=== PATIENT | female | born 1955 | race Caucasian/White ===

== ENCOUNTER 2017-10-09 16:43 | Emergency (ER) | payer SELFPAY ==
[2017-10-09] MEDS ORDERED: RINGERS SOLUTION,LACTATED 1,000 ML IV ONE (17:29)
--- NOTE | 2017-10-09 17:30 | ER Document Report ---
ED Medical Screen (RME) - General Chief Complaint: Nausea/Vomiting Stated Complaint: VOMITING Time Seen by Provider: 10/09/17 17:29 Mode of Arrival: Ambulatory Information source: Patient Notes: 61-year-old female presents to the emergency room with nausea, vomiting for several days. TRAVEL OUTSIDE OF THE [place] IN LAST 30 DAYS: No - Related Data Allergies/Adverse Reactions: No Known Allergies Allergy (Verified 10/09/17 17:09) Past Medical History - Social History Chew tobacco use (# tins/day): No Frequency of alcohol use: None Drug Abuse: None - Past Medical History Cardiac Medical History: Reports: Hx Hypertension Denies: Hx Heart Attack Pulmonary Medical History: Denies: Hx Asthma Neurological Medical History: Denies: Hx Cerebrovascular Accident, Hx Seizures Renal/ Medical History: Denies: Hx Peritoneal Dialysis GI Medical History: Denies: Hx Hepatitis, Hx Hiatal Hernia, Hx Ulcer Infectious Medical History: Denies: Hx Hepatitis Past Surgical History: Denies: Hx Mastectomy, Hx Open Heart Surgery, Hx Pacemaker Physical Exam - Vital signs Vitals: Temp Pulse Resp BP Pulse Ox 98.1 F 89 18 132/94 H 97 10/09/17 16:55 10/09/17 16:55 10/09/17 16:55 10/09/17 16:55 10/09/17 16:55 Course - Vital Signs Vital signs: Temp Pulse Resp BP Pulse Ox 98.1 F 89 18 132/94 H 97 10/09/17 16:55 10/09/17 16:55 10/09/17 16:55 10/09/17 16:55 10/09/17 16:55
[2017-10-09 18:13] LABS: APPEARANCE,URINE CLEAR; BILIRUBIN,URINE NEGATIVE (NEGATIVE); COLOR,URINE YELLOW; GLUCOSE, URINE NEGATIVE (NEGATIVE); KETONES,URINE NEGATIVE (NEGATIVE); LEUKOCYTE ESTERASE,URINE NEGATIVE (NEGATIVE); NITRITE,URINE NEGATIVE (NEGATIVE); PROTEIN,URINE 100 mg/dL (NEGATIVE); URINE SPECIFIC GRAVITY 1.024; UROBILINOGEN,URINE NEGATIVE mg/dL (<2.0)
[2017-10-09 18:25] LABS: ALANINE AMINOTRANSFERASE 36 U/L (9-52); ALBUMIN 4.8 g/dL (3.5-5.0); ALKALINE PHOSPHATASE 112 U/L (38-126); ANION GAP 17 (5-19); ASPARTATE AMINO TRANSFERASE 26 U/L (14-36); BILIRUBIN,DIRECT 0.3 mg/dL (0.0-0.4); BILIRUBIN,TOTAL 0.7 mg/dL (0.2-1.3); BLOOD UREA NITROGEN 39 mg/dL (7-20); CALCIUM 9.9 mg/dL (8.4-10.2); CARBON DIOXIDE 29 mmol/L (22-30); CHLORIDE 92 mmol/L (98-107); GLUCOSE 117 mg/dL (75-110); LIPASE 71.9 U/L (23-300); POTASSIUM 3.3 mmol/L (3.6-5.0); SODIUM 137.7 mmol/L (137-145); TOTAL PROTEIN 8.3 g/dL (6.3-8.2)
[2017-10-09] MEDS ORDERED: NORMAL SALINE 1000 ML 1,000 ML IV ONE (18:26)
--- NOTE | 2017-10-09 18:26 | ER Document Report ---
ED General - General Chief Complaint: Nausea/Vomiting Stated Complaint: VOMITING Time Seen by Provider: 10/09/17 17:29 Mode of Arrival: Ambulatory Information source: Patient Notes: 61-year-old female presents with complaints of nausea vomiting diarrhea over the past 4 days. pt notes it started after eating yogurt. notes diarrhea was the first 2 cisse, the nausea and vomiting since. Patient denies any significant abdominal pain denies any fevers or chills TRAVEL OUTSIDE OF THE [place] IN LAST 30 DAYS: No - HPI Onset: Last week Onset/Duration: Persistent Quality of pain: Cramping Severity: Mild Pain Level: 1 Associated symptoms: Diarrhea, Nausea, Vomiting Exacerbated by: Food Relieved by: Denies Similar symptoms previously: No Recently seen / treated by doctor: No - Related Data Allergies/Adverse Reactions: No Known Allergies Allergy (Verified 10/09/17 17:09) Past Medical History - General Information source: Patient - Social History Smoking Status: Current Every Day Smoker Cigarette use (# per day): Yes Chew tobacco use (# tins/day): No Smoking Education Provided: No Frequency of alcohol use: None Drug Abuse: None Family History: Reviewed & Not Pertinent Patient has suicidal ideation: No Patient has homicidal ideation: No - Past Medical History Cardiac Medical History: Reports: Hx Hypertension Denies: Hx Heart Attack Pulmonary Medical History: Denies: Hx Asthma Neurological Medical History: Denies: Hx Cerebrovascular Accident, Hx Seizures Renal/ Medical History: Denies: Hx Peritoneal Dialysis GI Medical History: Denies: Hx Hepatitis, Hx Hiatal Hernia, Hx Ulcer Infectious Medical History: Denies: Hx Hepatitis Past Surgical History: Denies: Hx Mastectomy, Hx Open Heart Surgery, Hx Pacemaker Review of Systems - Review of Systems Notes: REVIEW OF SYSTEMS: CONSTITUTIONAL : Denies fever, chills, or sweats. Denies recent illness. EENT: Denies eye, ear, throat, or mouth pain or symptoms. Denies nasal or sinus congestion or discharge. Denies throat, tongue, or mouth swelling or difficulty swallowing. CARDIOVASCULAR: Denies chest pain. Denies palpitations or racing or irregular heart beat. Denies ankle edema. RESPIRATORY: Denies cough, cold, or chest congestion. Denies shortness of breath, difficulty breathing, or wheezing. GASTROINTESTINAL: Admits to nausea vomiting diarrhea GENITOURINARY: Denies difficulty urinating, painful urination, burning, frequency, blood in urine, or discharge. FEMALE GENITOURINARY: Denies vaginal bleeding, heavy or abnormal periods, irregular periods. Denies vaginal discharge or odor. MUSCULOSKELETAL: Denies back or neck pain or stiffness. Denies joint pain or swelling. SKIN: Denies rash, lesions or sores. HEMATOLOGIC : Denies easy bruising or bleeding. LYMPHATIC: Denies swollen, enlarged glands. NEUROLOGICAL: Denies confusion or altered mental status. Denies passing out or loss of consciousness. Denies dizziness or lightheadedness. Denies headache. Denies weakness or paralysis or loss of use of either side. Denies problems with gait or speech. Denies sensory loss, numbness, or tingling. Denies seizures. PSYCHIATRIC: Denies anxiety or stress. Denies depression, suicidal ideation, or homicidal ideation. ALL OTHER SYSTEMS REVIEWED AND NEGATIVE. PHYSICAL EXAMINATION: GENERAL: Well-appearing, well-nourished and in no acute distress. HEAD: Atraumatic, normocephalic. EYES: Pupils equal round and reactive to light, extraocular movements intact, conjunctiva are normal. ENT: Nares patent, oropharynx clear without exudates. Moist mucous membranes. NECK: Normal range of motion, supple without lymphadenopathy LUNGS: Breath sounds clear to auscultation bilaterally and equal. No wheezes rales or rhonchi. HEART: Regular rate and rhythm without murmurs ABDOMEN: Soft, nontender, nondistended abdomen. No guarding, no rebound. No masses appreciated. Female : deferred Musculoskeletal: Normal range of motion, no pitting or edema. No cyanosis. NEUROLOGICAL: Cranial nerves grossly intact. Normal speech, normal gait. Normal sensory, motor exams PSYCH: Normal mood, normal affect. SKIN: Warm, Dry, normal turgor, no rashes or lesions noted. Dictation was performed using [employer] voice recognition software Physical Exam - Vital signs Vitals: Temp Pulse Resp BP Pulse Ox 98.1 F 89 18 132/94 H 97 10/09/17 16:55 10/09/17 16:55 10/09/17 16:55 10/09/17 16:55 10/09/17 16:55 Course - Re-evaluation Re-evalutation: 10/09/17 18:57 Patient symptoms have resolved after giving Zofran elevated white count is noted which I believe is secondary to the nausea vomiting 10/09/17 19:28 Patient notes symptoms have improved significantly I will discharge home with nausea control otherwise she looks well is in no distress After performing a Medical Screening Examination, I estimate there is LOW risk for ACUTE APPENDICITIS, BOWEL OBSTRUCTION, ACUTE CHOLECYSTITIS, PERFORATED DIVERTICULITIS, INCARCERATED HERNIA, PANCREATITIS, PELVIC INFLAMMATORY DISEASE, PERFORATED ULCER, ECTOPIC , or TUBO-OVARIAN ABSCESS, thus I consider the discharge disposition reasonable. Also, there is no evidence or peritonitis , sepsis, or toxicity. I have reevaluated this patient multiple times and no significant life threatening changes are noted. The patient and I have discussed the diagnosis and risks, and we agree with discharging home with close follow-up with the understanding that symptoms and presentations can change. We also discussed returning to the Emergency Department immediately if new or worsening symptoms occur. We have discussed the symptoms which are most concerning (e.g., bloody stool, fever, changing or worsening pain, vomiting) that necessitate immediate return. - Vital Signs Vital signs: Temp Pulse Resp BP Pulse Ox 98.5 F 79 18 155/79 H 97 10/09/17 18:29 10/09/17 18:29 10/09/17 18:29 10/09/17 18:29 10/09/17 18:29 - Laboratory Result Diagrams: 10/09/17 17:40 10/09/17 17:40 Laboratory results interpreted by me: 10/09/17 10/09/17 10/09/17 17:40 17:40 17:40 WBC 18.0 H RBC 6.22 H Hgb 18.8 H Hct 55.1 H Seg Neutrophils % 79.9 H Lymphocytes % 11.2 L Absolute Neutrophils 14.4 H Absolute Monocytes 1.5 H Potassium 3.3 L Chloride 92 L BUN 39 H Glucose 117 H Magnesium 2.5 H Total Protein 8.3 H Urine Protein 100 H Urine Blood MODERATE H Discharge - Discharge Clinical Impression: Nausea vomiting and diarrhea Condition: Stable Disposition: HOME, SELF-CARE Instructions: Vomiting ([facility]) Additional Instructions: Follow up with your physician tomorrow for further care or return to the ED IMMEDIATELY if symptoms worsen or new concerns occur. If you cannot afford to follow up with your primary care physician a list of low cost clinics have been provided at the end of your discharge papers as well. Prescriptions: Ondansetron [Zofran Odt 4 mg Tablet] 1 - 2 tab PO Q4H PRN #15 tab.rapdis PRN Reason: For Nausea/Vomiting
[2017-10-09 18:28] LABS: ABSOLUTE BASOPHILS # (AUTO) 0.1 10^3/uL (0.0-0.2); ABSOLUTE MONOCYTES (AUTO) 1.5 10^3/uL (0.1-1.4); ABSOLUTE NEUT (AUTO) 14.4 10^3/uL (1.7-8.2); BASOPHILS % (AUTO) 0.3 % (0-2); EOSINOPHILS % (AUTO) 0.2 % (0-6); HEMATOCRIT 55.1 % (36.0-47.0); HEMOGLOBIN 18.8 g/dL (12.0-15.5); LYMPHOCYTES % (AUTO) 11.2 % (13-45); MEAN CORPUSCULAR HEMOGLOBIN 30.2 pg (27.0-33.4); MEAN CORPUSCULAR HGB CONC 34.1 g/dL (32.0-36.0); MEAN CORPUSCULAR VOLUME 89 fl (80-97); MONOCYTES % (AUTO) 8.4 % (3-13); PLATELET COUNT 310 10^3/uL (150-450); RED BLOOD COUNT 6.22 10^6/uL (3.72-5.28); RED CELL DISTRIBUTION WIDTH 13.6 % (11.5-14.0); SEGMENTED NEUTROPHILS % (AUTO) 79.9 % (42-78); TOTAL CELLS COUNTED % (AUTO) 100 %
[2017-10-09] MEDS ORDERED: ONDANSETRON HCL INJ/PF 4 MG/2 ML SDV IV ONE (18:37)
[2017-10-09 19:46] VITALS: BP 135/75
== END 2017-10-09 19:46 | disposition home or self-care (01) ==
LOC: ER 16:43
DX: R11.2 Nausea with vomiting, unspecified (principal); R19.7 Diarrhea, unspecified; F17.210 Nicotine dependence, cigarettes, uncomplicated; I10 Essential (primary) hypertension
CPT/HCPCS: 99284; 96361; 96374; 36415; 83690; 83735; 85025; 80053; 81001; J2405; J7030; J7120

== ENCOUNTER 2017-10-15 09:25 | Emergency (ER) | payer SELFPAY ==
[2017-10-15] MEDS ORDERED: RINGERS SOLUTION,LACTATED 1,000 ML IV PRN (10:22)
[2017-10-15] MEDS ORDERED: RINGERS SOLUTION,LACTATED 500 ML IV ONE (10:22)
[2017-10-15] MEDS ORDERED: ONDANSETRON HCL INJ/PF 4 MG/2 ML SDV IV ONE (10:29)
--- NOTE | 2017-10-15 10:37 | ER Document Report ---
ED GI/ - General Chief Complaint: Nausea Stated Complaint: LEG PAIN Time Seen by Provider: 10/15/17 09:55 Mode of Arrival: Ambulatory Information source: Patient Notes: Chief complaint- abdominal pain: History of complain:( and then obtained from--patient): 61 years old female presents today with nausea abdominal cramps for the last few days. Had not had any bowel movement for a week. Denies any fever chills denies any other constitutional symptoms. Generally dehydrated and feeling malaise. Denies dysuria frequency urgency. Onset: Gradual Severity: Moderate Quality: Abdominal Context: No bowel movement Exacerbating factor and relieving factors: None REVIEW OF SYSTEMS: CONSTITUTIONAL : Denies fever, chills, or sweats. Denies recent illness. EENT: Denies eye, ear, throat, or mouth pain or symptoms. Denies nasal or sinus congestion or discharge. Denies throat, tongue, or mouth swelling or difficulty swallowing. CARDIOVASCULAR: Denies chest pain. Denies palpitations or racing or irregular heart beat. Denies ankle edema. RESPIRATORY: Denies cough, cold, or chest congestion. Denies shortness of breath, difficulty breathing, or wheezing. GASTROINTESTINAL: Denies abdominal pain or distention. Denies nausea, vomiting , or diarrhea. Denies blood in vomitus, stools, or per rectum. Denies black, tarry stools. Denies constipation. GENITOURINARY: Denies difficulty urinating, painful urination, burning, frequency, blood in urine, or discharge. FEMALE GENITOURINARY: Denies vaginal bleeding, heavy or abnormal periods, irregular periods. Denies vaginal discharge or odor. MUSCULOSKELETAL: Denies back or neck pain or stiffness. Denies joint pain or swelling. SKIN: Denies rash, lesions or sores. HEMATOLOGIC : Denies easy bruising or bleeding. LYMPHATIC: Denies swollen, enlarged glands. NEUROLOGICAL: Denies confusion or altered mental status. Denies passing out or loss of consciousness. Denies dizziness or lightheadedness. Denies headache. Denies weakness or paralysis or loss of use of either side. Denies problems with gait or speech. Denies sensory loss, numbness, or tingling. Denies seizures. PSYCHIATRIC: Denies anxiety or stress. Denies depression, suicidal ideation, or homicidal ideation. ALL OTHER SYSTEMS REVIEWED AND NEGATIVE. PHYSICAL EXAMINATION: GENERAL: Well-appearing, well-nourished and in no acute distress. HEAD: Atraumatic, normocephalic. EYES: Pupils equal round and reactive to light, extraocular movements intact, conjunctiva are normal. ENT: Nares patent, oropharynx clear without exudates. Moist mucous membranes. NECK: Normal range of motion, supple without lymphadenopathy LUNGS: Breath sounds clear to auscultation bilaterally and equal. No wheezes rales or rhonchi. HEART: Regular rate and rhythm without murmurs ABDOMEN: Soft, nontender, nondistended abdomen. No guarding, no rebound. No masses appreciated. Female : deferred Musculoskeletal: Normal range of motion, no pitting or edema. No cyanosis. NEUROLOGICAL: Cranial nerves grossly intact. Normal speech, normal gait. Normal sensory, motor exams PSYCH: Normal mood, normal affect. SKIN: Warm, Dry, normal turgor, no rashes or lesions noted. Dictation was performed using [employer] voice recognition software is TRAVEL OUTSIDE OF THE [place] IN LAST 30 DAYS: No - HPI Patient complains to provider of: Abdominal pain Quality of pain: Cramping Severity at maximum: Moderate Pain Level: 2 Location: Other - Diffuse Associated symptoms: Constipation, Nausea. denies: None, Blood in emesis, Blood in stool, Chest pain, Chills, Coffee ground emesis, Diarrhea, Dizzy, Dysuria, Fever, Hard stool, Hematuria, Hurts to breath, Inguinal mass, Lightheaded, Loss of appetite, Odor, Painful intercourse, Radiates to back, Radiates to chest, Radiates to vagina, Radiates to shoulder, Shortness of breath , Sweaty, Syncope, Urinary hesitancy, Urinary frequency, Urinary retention, Urinary urgency, Vaginal discharge, Vomiting, Other Exacerbated by: Denies Relieved by: Denies Notes: 10/15/17 15:23 Dictated - Related Data Allergies/Adverse Reactions: No Known Allergies Allergy (Verified 10/09/17 17:09) Past Medical History - General Information source: Patient - Social History Smoking Status: Current Every Day Smoker Chew tobacco use (# tins/day): No Frequency of alcohol use: Rare Drug Abuse: None Family History: Reviewed & Not Pertinent Patient has suicidal ideation: No Patient has homicidal ideation: No - Past Medical History Cardiac Medical History: Reports: Hx Hypertension Denies: Hx Heart Attack Pulmonary Medical History: Denies: Hx Asthma Neurological Medical History: Denies: Hx Cerebrovascular Accident, Hx Seizures Renal/ Medical History: Denies: Hx Peritoneal Dialysis GI Medical History: Denies: Hx Hepatitis, Hx Hiatal Hernia, Hx Ulcer Infectious Medical History: Denies: Hx Hepatitis Past Surgical History: Denies: Hx Mastectomy, Hx Open Heart Surgery, Hx Pacemaker Review of Systems - Review of Systems Notes: Dictated Physical Exam - Vital signs Vitals: Pulse Resp BP Pulse Ox 88 22 H 220/114 H 98 10/15/17 09:39 10/15/17 09:39 10/15/17 09:39 10/15/17 09:39 - Notes Notes: Dictated Course - Re-evaluation Re-evalutation: 10/15/17 15:29 Given IV antibiotics suspecting undiagnosed diverticulitis. As well as for esophagitis 10/15/17 18:36 Patient's blood pressure was elevated therefore given clonidine 0.2 mg. She vomited the potassium therefore IV potassium was given - Vital Signs Vital signs: Temp Pulse Resp BP Pulse Ox 88 16 220/105 H 100 10/15/17 09:39 10/15/17 18:02 10/15/17 18:02 10/15/17 17:10 - Laboratory Result Diagrams: 10/15/17 10:01 10/15/17 10:01 Laboratory results interpreted by me: 10/15/17 10/15/17 10/15/17 10:01 10:01 11:11 WBC 17.1 H RBC 5.64 H Hgb 17.2 H Hct 49.8 H Seg Neutrophils % 84.4 H Lymphocytes % 9.4 L Absolute Neutrophils 14.4 H Sodium 133.4 L Potassium 3.0 L* Chloride 93 L BUN 21 H Glucose 152 H Urine Protein 30 H Urine Glucose (UA) 50 H Urine Ketones 80 H Urine Blood SMALL H Urine Urobilinogen 4.0 H - Diagnostic Test Radiology reviewed: Reports reviewed - CT reported by radiologist as no obstruction. Esophagitis Abdominal x-ray showed large amount of fecal material Discharge - Discharge Clinical Impression: Esophagitis, Diverticulitis, Hypokalemia Nausea & vomiting Qualifiers: Vomiting type: unspecified Vomiting Intractability: non-intractable Qualified Code(s): R11.2 - Nausea with vomiting, unspecified Condition: Fair Disposition: HOME, SELF-CARE Instructions: Antinausea Medication ([facility]), Esophagitis ([facility]), Prilosec (Acid Pump Inhibitor) ([facility]) Prescriptions: Ciprofloxacin HCl [Cipro 500 mg Tablet] 500 mg PO BID #20 tablet Clonidine HCl 0.2 mg PO BID #60 tablet Lactulose 20 gm PO BID #120 ml Metoclopramide HCl [Reglan] 10 mg PO Q6 PRN #30 tablet PRN Reason: Metronidazole [Flagyl 500 mg Tablet] 500 mg PO Q6H #28 tablet Potassium Chloride 20 meq PO BID #10 tab.er.prt
[2017-10-15 10:43] LABS: ABSOLUTE BASOPHILS # (AUTO) 0.1 10^3/uL (0.0-0.2); ABSOLUTE LYMPHOCYTES (AUTO) 1.6 10^3/uL (0.5-4.7); ABSOLUTE NEUT (AUTO) 14.4 10^3/uL (1.7-8.2); BASOPHILS % (AUTO) 0.4 % (0-2); EOSINOPHILS % (AUTO) 0.2 % (0-6); HEMATOCRIT 49.8 % (36.0-47.0); HEMOGLOBIN 17.2 g/dL (12.0-15.5); LYMPHOCYTES % (AUTO) 9.4 % (13-45); MEAN CORPUSCULAR HEMOGLOBIN 30.6 pg (27.0-33.4); MEAN CORPUSCULAR HGB CONC 34.6 g/dL (32.0-36.0); MEAN CORPUSCULAR VOLUME 88 fl (80-97); MONOCYTES % (AUTO) 5.6 % (3-13); PLATELET COUNT 343 10^3/uL (150-450); RED BLOOD COUNT 5.64 10^6/uL (3.72-5.28); RED CELL DISTRIBUTION WIDTH 12.9 % (11.5-14.0); SEGMENTED NEUTROPHILS % (AUTO) 84.4 % (42-78); TOTAL CELLS COUNTED % (AUTO) 100 %; WHITE BLOOD COUNT 17.1 10^3/uL (4.0-10.5)
[2017-10-15 10:59] LABS: ALANINE AMINOTRANSFERASE 28 U/L (9-52); ALBUMIN 4.2 g/dL (3.5-5.0); ANION GAP 17 (5-19); ASPARTATE AMINO TRANSFERASE 19 U/L (14-36); BILIRUBIN,DIRECT 0.4 mg/dL (0.0-0.4); BILIRUBIN,TOTAL 0.9 mg/dL (0.2-1.3); BLOOD UREA NITROGEN 21 mg/dL (7-20); CALCIUM 9.8 mg/dL (8.4-10.2); CARBON DIOXIDE 23 mmol/L (22-30); CHLORIDE 93 mmol/L (98-107); GLUCOSE 152 mg/dL (75-110); SODIUM 133.4 mmol/L (137-145); TOTAL PROTEIN 6.8 g/dL (6.3-8.2)
[2017-10-15 11:00] LABS: ALKALINE PHOSPHATASE 92 U/L (38-126)
[2017-10-15] MEDS ORDERED: METOCLOPRAMIDE HCL INJ/PF 10 MG/2 ML SDV IV ONE (11:02)
[2017-10-15 11:45] LABS: APPEARANCE,URINE CLOUDY; BILIRUBIN,URINE NEGATIVE (NEGATIVE); COLOR,URINE YELLOW; GLUCOSE, URINE 50 mg/dL (NEGATIVE); KETONES,URINE 80 mg/dL (NEGATIVE); LEUKOCYTE ESTERASE,URINE NEGATIVE (NEGATIVE); NITRITE,URINE NEGATIVE (NEGATIVE); PROTEIN,URINE 30 mg/dL (NEGATIVE); URINE SPECIFIC GRAVITY 1.023
--- NOTE | 2017-10-15 11:45 | RADIOLOGY REPORT (SQ) ---
EXAM DESCRIPTION: KUB/ABDOMEN (SINGLE VIEW) COMPLETED DATE/TIME: 10/15/2017 11:18 am REASON FOR STUDY: Abdominal pain COMPARISON: 10/11/2006. NUMBER OF VIEWS: One view. TECHNIQUE: Supine radiographic image of the abdomen acquired. LIMITATIONS: None. FINDINGS: BOWEL GAS PATTERN: Normal bowel gas pattern. No dilated loops. CALCIFICATIONS: No suspicious calcifications. SOFT TISSUES: No gross mass or suggestion of organomegaly. HARDWARE: None in the abdomen. BONES: No acute fracture. No worrisome bone lesions. OTHER: No other significant finding. IMPRESSION: NO RADIOGRAPHIC EVIDENCE FOR ACUTE ABDOMINAL DISEASE. TECHNICAL DOCUMENTATION: JOB ID: [id number] [employer]- All Rights Reserved Reading location - IP/workstation name: [email or web address]
[2017-10-15 14:14] LABS: URINE AMPHETAMINES SCREEN NEGATIVE; URINE BARBITURATES SCREEN NEGATIVE; URINE BENZODIAZEPINES SCREEN NEGATIVE; URINE COCAINE SCREEN NEGATIVE; URINE MARIJUANA (THC) SCREEN UNCONFIRMED POSITIVE; URINE METHADONE SCREEN NEGATIVE; URINE PHENCYCLIDINE SCREEN NEGATIVE
--- NOTE | 2017-10-15 14:24 | RADIOLOGY REPORT (SQ) ---
EXAM DESCRIPTION: CT ABD/PELVIS WITH IV ONLY COMPLETED DATE/TIME: 10/15/2017 1:49 pm REASON FOR STUDY: Abdominal pain elevated white cell . Epigastric pain. COMPARISON: None. TECHNIQUE: CT scan of the abdomen and pelvis performed using helical scanning technique with dynamic intravenous contrast injection. No oral contrast. Images reviewed with lung, soft tissue, and bone windows. Reconstructed coronal and sagittal MPR images reviewed. Delayed images for evaluation of the urinary system also acquired. All images stored on PACS. All CT scanners at this facility use dose modulation, iterative reconstruction, and/or weight based d osing when appropriate to reduce radiation dose to as low as reasonably achievable (ALARA). [facility]: Dose Right [facility]: CareDose [facility]: Dose Right [facility]: Teradose 4D [facility]: Virtual View App CONTRAST TYPE AND DOSE: contrast/concentration: Isovue 370.00 mg/ml; Total Contrast Delivered: 61.0 ml; Total Saline Delivered: 65.0 ml RENAL FUNCTION: Creatinine: 0.83. RADIATION DOSE: CT Rad equipment meets quality standard of care and radiation dose reduction techniq ues were employed. CTDIvol: 5.0 - 6.0 mGy. DLP: 528 mGy-cm.. LIMITATIONS: None. FINDINGS: LOWER CHEST: No abnormality seen. LIVER: Focal rounded area of decreased attenuation right lobe of the liver could represent hepatic cy sts. SPLEEN: No abnormality. PANCREAS: No abnormality. GALLBLADDER: No abnormality. The common bile duct is prominent ADRENAL GLANDS: No abnormality. RIGHT KIDNEY AND URETER: No abnormality. LEFT KIDNEY AND URETER: No abnormality. AORTA AND VESSELS: Atherosclerotic change of the abdominal aorta and iliac vessels. Renal arteries, SMA, celiac without stenosis. RETROPERITONEUM: No retroperitoneal adenopathy, hemorrhage or masses. BOWEL AND PERITONEAL CAVITY: Colonic diverticulosis. There is prominence of the mucosa of the distal esophagus. A small hiatal hernia is not excluded. APPENDIX: Not clearly visualized. PELVIS: Bladder: No abnormality. Uterus and adnexal regions: No abnormality. ABDOMINAL WALL: No masses. No hernias. BONES: Lumbar spondylosis and degenerative disc disease from L2-S1. Grade 1 anterolisthesis of L5 on S1 with spondylolysis of L5 noted. IMPRESSION: 1. Findings suggestive of a small hiatal hernia. Thickening of distal esophageal mucos a. Reflux esophagitis could not be excluded. 2. Small simple hepatic cyst. TECHNICAL DOCUMENTATION: JOB ID: [id number] Quality ID # [id number]: Final reports with documentation of one or more dose reduction techniques (e.g., Au tomated exposure control, adjustment of the mA and/or kV according to patient size, use of iterative reconstruction technique) 2010 [employer]- All Rights Reserved Reading location - IP/workstation name: [email or web address]
[2017-10-15] MEDS ORDERED: POTASSIUM CHLORIDE 20 MEQ/15 ML UDCUP PO ONE (15:20)
[2017-10-15] MEDS ORDERED: METRONIDAZOLE 500 MG TABLET PO ONE (15:22)
[2017-10-15] MEDS ORDERED: CIPROFLOXACIN 400 MG/D5W RTU 400 MG/200 ML RTUPB IV SCH (16:00)
[2017-10-15] MEDS ORDERED: DICYCLOMINE HCL INJ 20 MG/2 ML AMPULE IM ONE (16:03)
[2017-10-15] MEDS ORDERED: PROMETHAZINE HCL INJ 50 MG/1 ML VIAL IM PRN (16:03)
[2017-10-15] MEDS ORDERED: POTASSI CL 20 MEQ/50 ML RIDER 20 MEQ/50 ML RTUPB IV ONE (16:04)
[2017-10-15] MEDS ORDERED: METRONIDAZOLE 500 MG/NS RTU 100 ML IV ONE (16:05)
[2017-10-15] MEDS ORDERED: PROMETHAZINE HCL INJ 50 MG/1 ML VIAL ONE (17:45)
[2017-10-15] MEDS ORDERED: CLONIDINE HCL 0.2 MG TABLET PO ONE (17:46)
[2017-10-15] MEDS ORDERED: HYDRALAZINE HCL INJ/PF 20 MG/1 ML SDV IV ONE (18:39)
[2017-10-15] MEDS ORDERED: OXYCODONE-ACETAMINOPHEN 5-325 MG TABLET PO ONE (18:44)
[2017-10-15] MEDS ORDERED: ONDANSETRON ODT 4 MG TAB (6 TAB/ER DISP) PO PRN (19:47)
[2017-10-15 20:45] VITALS: BP 150/99
== END 2017-10-15 20:00 | disposition home or self-care (01) ==
LOC: ER 09:25
DX: K57.92 Diverticulitis of intestine, part unspecified, without perforation or abscess without bleeding (principal); K20.9 Esophagitis, unspecified; E87.6 Hypokalemia; R11.2 Nausea with vomiting, unspecified; R10.84 Generalized abdominal pain; F17.200 Nicotine dependence, unspecified, uncomplicated; I10 Essential (primary) hypertension
CPT/HCPCS: 99284; 96372; 96361; 96375; 96365; 96366; 96367; 96368; 36415; 87040; 83735; 85025; 80053; 81001; 80307; 74018; 74177; J0500; J0360; J2765; J2550; J3480; J7120; J0744